=== PATIENT | male | born 2000 | race African-American/Black ===

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

== ENCOUNTER → 2018-01-11 | Outpatient (REF) | payer OTHER ==
[2018-01-11 12:52] LABS: BASO % 0.7 % (0.0-1.0); EOS # 0.1 10^3/uL (0.0-0.50); EOS % 3.2 % (0.0-3.0); HEMATOCRIT 44.7 % (42.0-52.0); HEMOGLOBIN 14.3 g/dl (13.5-17.5); MEAN CORPUSCULAR HEMOGLOBIN 28.2 pg (27.0-33.0); MEAN CORPUSCULAR VOLUME 88.2 fl (80.0-96.0); MONO # 0.4 10^3/uL (0.0-0.8); MONO % 9.9 % (0.0-5.0); NEUTROPHILS # 1.8 10^3/uL (1.8-7.7); NEUTROPHILS % 40.2 % (36.0-66.0); PLATELET COUNT, AUTOMATED 303 10^3/uL (150-450); RED BLOOD COUNT 5.07 10^6/uL (4.30-6.10); RED CELL DISTRIBUTION WIDTH 12.2 % (11.5-14.5); WHITE BLOOD COUNT 4.4 10^3/uL (4.0-10.0)
[2018-01-11 13:25] LABS: ALBUMIN/GLOBULIN RATIO 1.21 (1.00-1.93); ALKALINE PHOSPHATASE 79 U/L (45-117); ALT/SGPT 21 U/L (12-78); ANION GAP 7 MEQ/L (8-16); AST/SGOT 17 U/L (7-37); BILIRUBIN,TOTAL 1.1 MG/DL (0.2-1.0); BLOOD UREA NITROGEN 10 MG/DL (7-18); CALCIUM LEVEL 8.7 MG/DL (8.5-10.1); CARBON DIOXIDE LEVEL 28 MEQ/L (21-32); CHLORIDE LEVEL 105 MEQ/L (98-107); CHOLESTEROL LEVEL 95 MG/DL (<200); CHOLESTEROL RISK RATIO 2.065 (<5); CREATININE FOR GFR 0.83 MG/DL (0.70-1.30); GLUCOSE, FASTING 86 MG/DL (70-100); HDL CHOLESTEROL 46 MG/DL (>40); LDL CHOLESTEROL 40 MG/DL (<100); NON-HDL-C 49 MG/DL; POTASSIUM SERUM 4.4 MEQ/L (3.5-5.1); SODIUM LEVEL 140 MEQ/L (136-145); TOTAL PROTEIN 7.3 GM/DL (6.4-8.2); TRIGLYCERIDES LEVEL 45 MG/DL (<150)
== END ==
LOC: M LAB REF 11:53
DX: Z13.0 Encounter for screening for diseases of the blood and blood-forming organs and certain disorders involving the immune mechanism (principal); Z13.220 Encounter for screening for lipoid disorders
CPT/HCPCS: 84443

== ENCOUNTER 2018-05-04 12:55 | Emergency (ER) | payer MEDICAID, OTHER, SELFPAY ==
[~2018-05-04] VITALS: Ht 177.8 cm; Wt 66.4 kg
[2018-05-04] MEDS ORDERED: NS 1,000 ML IV ONE (14:00)
[2018-05-04 14:22] LABS: BASO % 0.8 % (0.0-1.0); EOS # 0.1 10^3/uL (0.0-0.50); EOS % 2.8 % (0.0-3.0); HEMATOCRIT 45.9 % (42.0-52.0); HEMOGLOBIN 14.9 g/dl (13.5-17.5); LYMPH # 1.6 10^3/uL (1.5-6.5); LYMPH % 41.2 % (24.0-44.0); MEAN CORPUSCULAR HEMOGLOBIN 28.4 pg (27.0-33.0); MEAN CORPUSCULAR HGB CONC 32.5 g/dl (32.0-36.5); MEAN CORPUSCULAR VOLUME 87.4 fl (80.0-96.0); MONO # 0.5 10^3/uL (0.0-0.8); MONO % 12.2 % (0.0-5.0); NEUTROPHILS # 1.7 10^3/uL (1.8-7.7); NEUTROPHILS % 42.7 % (36.0-66.0); PLATELET COUNT, AUTOMATED 318 10^3/uL (150-450); RED BLOOD COUNT 5.25 10^6/uL (4.30-6.10); WHITE BLOOD COUNT 3.9 10^3/uL (4.0-10.0)
[2018-05-04 14:45] LABS: ALBUMIN 4.3 GM/DL (3.2-5.2); ALT/SGPT 46 U/L (12-78); AMYLASE 52 U/L (25-115); BILIRUBIN,DIRECT 0.2 MG/DL (0.0-0.2); BILIRUBIN,TOTAL 0.9 MG/DL (0.2-1.0); BLOOD UREA NITROGEN 9 MG/DL (7-18); CALCIUM LEVEL 9.3 MG/DL (8.5-10.1); CARBON DIOXIDE LEVEL 31 MEQ/L (21-32); CHLORIDE LEVEL 104 MEQ/L (98-107); GLUCOSE, FASTING 95 MG/DL (70-100); LIPASE 45 U/L (73-393); POTASSIUM SERUM 3.5 MEQ/L (3.5-5.1); SODIUM LEVEL 141 MEQ/L (136-145); TOTAL PROTEIN 7.5 GM/DL (6.4-8.2)
[2018-05-04] MEDS ORDERED: ISOVUE-370 76% 125ML VIAL (Q9967 PER ML) As Ordered ONE (14:48)
[2018-05-04 15:27] VITALS: BP 132/75
--- NOTE | 2018-05-04 16:40 | REP ---
CT abdomen and pelvis with IV but without oral contrast: History: Left lower quadrant abdominal pain. CT contrast dose: 100 ml of intravenous Isovue 370. CT findings: Preliminary digital founder radiograph demonstrates a levoconvex curve in the lumbar spine consistent with splinting versus scoliosis. The lung bases are clear. Bowel gas pattern is normal. The liver and the spleen are normal in size and homogeneous in texture. No adrenal lesion is seen. No pancreatic or gallbladder abnormality is observed. Kidneys enhance symmetrically and are morphologically intact. No retroperitoneal mass or adenopathy is observed. Small and large intestinal bowel loops are normal in the abdomen and pelvis. A normal retrocecal appendix is seen. Its tip terminates high in the Morison's pouch region adjacent to the duodenum and gallbladder. There is no CT evidence of appendicitis. Small and large bowel loops are unremarkable. There is no evidence of diverticulitis or bowel obstruction. Urinary bladder, seminal vesicles and prostate are unremarkable. No abdominal wall defect is seen. Bone window settings show no bony destructive lesion. Impression: Normal retrocecal appendix. No inflammatory lesion seen in the abdomen or pelvis. Unremarkable CT study. Electronically Signed by Milo Ontiveros MD 05/04/2018 04:53 P
== END 2018-05-04 15:30 | disposition home or self-care (01) ==
LOC: M ED 12:55
DX: R10.32 Left lower quadrant pain (principal)
CPT/HCPCS: 74177; 80048; 80076; 81001; 82150; 83690; 85025; 99284; Q9967

== ENCOUNTER 2022-01-16 06:40 | Emergency (ER) | payer MEDICAID, OTHER ==
[~2022-01-16] VITALS: Ht 177.8 cm; Wt 64.7 kg
[2022-01-16] MEDS ORDERED: IBUPROFEN 800 MG TAB PO ONE (08:25)
[2022-01-16] MEDS ORDERED: ACETAMINOPHEN 500 MG TAB PO ONE (08:25)
[2022-01-16 10:46] VITALS: BP 115/59
== END 2022-01-16 11:01 | disposition home or self-care (01) ==
LOC: M ED 06:40
DX: S62.326A Displaced fracture of shaft of fifth metacarpal bone, right hand, initial encounter for closed fracture (principal); W00.0XXA Fall on same level due to ice and snow, initial encounter; Y92.410 Unspecified street and highway as the place of occurrence of the external cause; F12.10 Cannabis abuse, uncomplicated

== ENCOUNTER 2023-12-05 00:38 | Emergency (ER) | payer OTHER ==
[~2023-12-05] VITALS: Ht 177.8 cm; Wt 61.1 kg
[2023-12-05] MEDS ORDERED: AMOX875T2 PO (01:30)
[2023-12-05] MEDS: KETOROLAC 30 MG/ML 1ML VIAL IM ONE (01:55)
[2023-12-05] MEDS: AUGMENTIN 875 MG TAB PO ONE (01:55)
[2023-12-05 02:01] VITALS: BP 118/78; TEMP 98.8; O2SAT 98
== END 2023-12-05 02:03 | disposition home or self-care (01) ==
LOC: M ED 00:38
DX: K03.81 Cracked tooth (principal); Z79.2 Long term (current) use of antibiotics
CPT/HCPCS: 96372; 99283; J1885

== ENCOUNTER 2023-12-18 05:04 | Emergency (ER) | payer OTHER ==
[~2023-12-18] VITALS: Ht 177.8 cm; Wt 61.7 kg
[~2023-12-18 05:04] MED LIST: AMOX875T2 PO
[2023-12-18] MEDS ORDERED: KETO10TAB PO (07:28)
[2023-12-18] MEDS ORDERED: CLEO150C PO (07:29)
[2023-12-18] MEDS: KETOROLAC 60MG 2ML VIAL IM ONE (07:37)
[2023-12-18] MEDS: CLINDAMYCIN 150MG CAPSULE PO ONE (07:38)
[2023-12-18 07:48] VITALS: BP 107/55; TEMP 97.1; O2SAT 98
== END 2023-12-18 07:58 | disposition home or self-care (01) ==
LOC: M ED 05:04
DX: K02.9 Dental caries, unspecified (principal); K08.89 Other specified disorders of teeth and supporting structures; F17.200 Nicotine dependence, unspecified, uncomplicated; F12.10 Cannabis abuse, uncomplicated; Z79.899 Other long term (current) drug therapy; Z79.2 Long term (current) use of antibiotics
CPT/HCPCS: 96372; 99284; J1885

== ENCOUNTER 2023-12-23 12:27 | Emergency (ER) | payer OTHER ==
[~2023-12-23] VITALS: Ht 177.8 cm; Wt 62.2 kg
[~2023-12-23 12:27] MED LIST changes: +CLEO150C PO; +KETO10TAB PO
[2023-12-23] MEDS ORDERED: ACET-683 PO (12:59)
[2023-12-23] MEDS ORDERED: LIDO15SO8 PO (12:59)
[2023-12-23] MEDS ORDERED: NAPR-837 PO (12:59)
[2023-12-23] MEDS: ACETAMINOPHEN 500 MG TAB PO ONE (13:04)
[2023-12-23] MEDS: NAPROXEN 250 MG TAB PO ONE (13:05)
[2023-12-23 13:11] VITALS: BP 121/67; TEMP 97.6; O2SAT 99
== END 2023-12-23 13:13 | disposition home or self-care (01) ==
LOC: M ED 12:27
DX: K08.89 Other specified disorders of teeth and supporting structures (principal); K03.81 Cracked tooth; F17.200 Nicotine dependence, unspecified, uncomplicated; Z79.1 Long term (current) use of non-steroidal anti-inflammatories (NSAID); Z79.2 Long term (current) use of antibiotics; Z79.899 Other long term (current) drug therapy

== ENCOUNTER → 2023-12-29 | Outpatient (REF) ==
[~2023-12-29] MED LIST changes: +ACET-683 PO; +LIDO15SO8 PO; +NAPR-837 PO
== END ==
LOC: M EMP 09:07
PROVIDERS: ATTEND Family Medicine
DX: Z11.52 Encounter for screening for COVID-19 (principal)

== ENCOUNTER 2024-01-26 22:07 | Emergency (ER) | payer OTHER ==
[~2024-01-26] VITALS: Ht 177.8 cm; Wt 67.9 kg
[2024-01-26 22:10] VITALS: BP 135/78; TEMP 97.6; O2SAT 97
[2024-01-27] MEDS: ACETAMINOPHEN 500 MG TAB PO ONE (00:20)
[2024-01-27] MEDS: KETOROLAC 60MG 2ML VIAL IM ONE (00:21)
== END 2024-01-27 01:00 | disposition home or self-care (01) ==
LOC: M ED 22:07
DX: K08.89 Other specified disorders of teeth and supporting structures (principal); Z79.1 Long term (current) use of non-steroidal anti-inflammatories (NSAID); Z79.899 Other long term (current) drug therapy; Z79.2 Long term (current) use of antibiotics
CPT/HCPCS: 87880; 96372; 99283; J1885

== ENCOUNTER → 2024-02-04 | Emergency (ER) | payer OTHER ==
[~2024-02-04] VITALS: Ht 177.8 cm; Wt 67.5 kg
[2024-02-04 22:37] VITALS: BP 133/78; TEMP 97.5; O2SAT 98
== END | disposition left against medical advice (07) ==
LOC: M ED 22:33
DX: Z53.21 Procedure and treatment not carried out due to patient leaving prior to being seen by health care provider (principal)

== ENCOUNTER 2024-04-21 15:46 | Emergency (ER) | payer OTHER ==
[~2024-04-21] VITALS: Ht 177.8 cm; Wt 63.2 kg
[2024-04-21 15:49] VITALS: TEMP 96.5
[2024-04-21 17:57] LABS: Trichomonas vaginalis (AMP) NOT DETECTED (NEGATIVE)
[2024-04-21 18:21] LABS: GC DNA AMPLIFICATION NEGATIVE (NEGATIVE)
[2024-04-21 18:47] VITALS: BP 132/98; O2SAT 98
== END 2024-04-21 18:48 | disposition home or self-care (01) ==
LOC: M ED 15:46
DX: Z11.3 Encounter for screening for infections with a predominantly sexual mode of transmission (principal); Z79.1 Long term (current) use of non-steroidal anti-inflammatories (NSAID); Z79.899 Other long term (current) drug therapy

== ENCOUNTER 2024-10-23 11:49 | Emergency (ER) | payer OTHER ==
[~2024-10-23] VITALS: Ht 177.8 cm; Wt 62.9 kg
[2024-10-23 14:36] VITALS: BP 126/84; TEMP 96.8; O2SAT 100
[2024-10-23 14:46] LABS: Trichomonas vaginalis (AMP) NOT DETECTED (NEGATIVE)
[2024-10-23 15:09] LABS: GC DNA AMPLIFICATION NEGATIVE (NEGATIVE)
== END 2024-10-23 14:54 | disposition home or self-care (01) ==
LOC: M ED 11:49
DX: R07.89 Other chest pain (principal); R06.02 Shortness of breath; Z79.1 Long term (current) use of non-steroidal anti-inflammatories (NSAID); Z79.899 Other long term (current) drug therapy

== ENCOUNTER 2024-12-13 14:39 | Emergency (ER) | payer OTHER ==
[~2024-12-13] VITALS: Ht 177.8 cm; Wt 63.5 kg
[2024-12-13] MEDS ORDERED: AMOX875T2 PO (15:55)
[2024-12-13] MEDS ORDERED: PERC5TAB12 PO (15:55)
[2024-12-13] MEDS ORDERED: KETO-204 PO (15:55)
[2024-12-13] MEDS: AUGMENTIN 875 MG TAB PO ONE (16:03)
[2024-12-13] MEDS: KETOROLAC TROMETHAMINE 10 MG TAB PO ONE (16:03)
[2024-12-13] MEDS: OXYCODONE/APAP 5MG/325MG(HOME DOSE PACK) PO ONE (16:04)
[2024-12-13 16:10] VITALS: BP 121/74; TEMP 97.3; O2SAT 97
== END 2024-12-13 16:11 | disposition home or self-care (01) ==
LOC: M ED 14:39
DX: K03.81 Cracked tooth (principal); Z79.1 Long term (current) use of non-steroidal anti-inflammatories (NSAID); Z79.2 Long term (current) use of antibiotics; Z79.899 Other long term (current) drug therapy